=== PATIENT | male | born 1980 | race Caucasian/White ===

== ENCOUNTER 2023-07-29 07:26 | Outpatient (OUT) | payer OTHER, SELFPAY ==
[2023-07-29 07:47] LABS: Basophils Percent Auto 0.7 % (0.2-2.0); Eosinophils Absolute Auto 0.1 10^3/uL (0.0-0.7); Eosinophils Percent Auto 2.6 % (0.9-7.0); Hematocrit 43.4 % (42.0-54.0); Hemoglobin 14.1 g/dL (14.0-18.0); Immature Granulocytes Abs Auto 0.01 10^3/uL (0.00-0.03); Immature Granulocytes Pct Auto 0.2 % (0.0-0.5); Lymphocytes Absolute Auto 1.6 10^3/uL (1.2-3.8); Lymphocytes Percent Auto 34.4 % (20.5-60.0); Mean Corpuscular HGB Conc 32.5 g/dL (29.9-35.2); Mean Corpuscular Hemoglobin 27.2 pg (25.9-34.0); Mean Corpuscular Volume 83.8 fL (80.0-94.0); Mean Platelet Volume 8.8 fL (9.5-13.5); Monocytes Absolute Auto 0.5 10^3/uL (0.3-0.8); Neutrophils Absolute Auto 2.4 10^3/uL (1.4-6.5); Neutrophils Percent Auto 52.1 % (43.0-75.0); Platelet Count 251 10^3/uL (150-450); Red Blood Count 5.18 10^6/uL (4.70-6.10); Red Cell Distribution Width 13.1 % (11.0-15.0); White Blood Count 4.6 10^3/uL (4.0-11.0)
[2023-07-29 09:52] LABS: Alanine Aminotransferase 58 U/L (16-63); Albumin Globulin Ratio 1.3; Alkaline Phosphatase 76 U/L (46-116); Anion Gap 13.6; Aspartate Amino Transferase 32 U/L (15-37); Bilirubin Total 0.5 mg/dL (0.2-1.0); Calcium 9.2 mg/dL (8.5-10.1); Carbon Dioxide 27.9 mmol/L (21.0-32.0); Chloride 103 mmol/L (98-107); Chol HDL Ratio 4.7; Cholesterol 235 mg/dL (<=200); Estimated GFR (African America >60 (>=60); Estimated GFR (Non-African Ame >60 (>=60); Globulin 3.2 g/dL; Glucose 101 mg/dL (74-106); HDL Cholesterol 50 mg/dL (40-60); Potassium 4.5 mmol/L (3.5-5.1); Sodium 140 mmol/L (136-145); Total Protein 7.2 g/dL (6.4-8.2); Triglycerides 197 mg/dL (<=150); VLDL CHOLESTEROL 39.4 mg/dL
[2023-07-31 10:09] LABS: QuantiFERON-TB Gold Plus Negative (Negative)
== END 2023-07-29 07:27 | disposition home or self-care (01) ==
LOC: LAB 07:29
PROVIDERS: PCP Family Medicine; Visit Provider Nurse Practitioner
DX: L40.0 Psoriasis vulgaris (principal); L40.59 Other psoriatic arthropathy; Z79.899 Other long term (current) drug therapy
CPT/HCPCS: 36415; 80053; 80061; 85025; 86480

== ENCOUNTER 2024-08-10 08:23 | Outpatient (OUT) | payer OTHER, SELFPAY ==
[2024-08-10 08:40] LABS: Basophils Percent Auto 0.5 % (0.2-2.0); Eosinophils Absolute Auto 0.1 10^3/uL (0.0-0.7); Eosinophils Percent Auto 2.6 % (0.9-7.0); Hematocrit 40.3 % (42.0-54.0); Hemoglobin 13.7 g/dL (14.0-18.0); Immature Granulocytes Abs Auto 0.01 10^3/uL (0.00-0.03); Immature Granulocytes Pct Auto 0.3 % (0.0-0.5); Lymphocytes Absolute Auto 1.3 10^3/uL (1.2-3.8); Lymphocytes Percent Auto 32.5 % (20.5-60.0); Mean Corpuscular Hemoglobin 28.7 pg (25.9-34.0); Mean Corpuscular Volume 84.3 fL (80.0-94.0); Mean Platelet Volume 8.7 fL (9.5-13.5); Monocytes Absolute Auto 0.4 10^3/uL (0.3-0.8); Monocytes Percent Auto 9.5 % (1.7-12.0); Neutrophils Absolute Auto 2.1 10^3/uL (1.4-6.5); Neutrophils Percent Auto 54.6 % (43.0-75.0); Platelet Count 241 10^3/uL (150-450); Red Blood Count 4.78 10^6/uL (4.70-6.10); Red Cell Distribution Width 13.5 % (11.0-15.0); White Blood Count 3.9 10^3/uL (4.0-11.0)
--- OUTSIDE RECORDS SUMMARY | 2024-08-10 08:47 | XMS_ITS | CCD ---
Author Organization [facility] Care Team Providers Care Dealership General Manager Name Role Phone JOHNC, DOCTOR Consulting Unavailable BREN, DR SHARA Gould Primary Care Unavailable MISC, DR GONZALEZ Attending Unavailable MISC, DR GONZALEZ Admitting Unavailable Michelle, HAZARDOUS MATERIALS TANKER DRIVER-C Elle A Attending Provider SHARA AMAYA Primary Care Physician MICHELLE, LOG PEELER ELLE Attending Unavailable MICHELLE, LOG PEELER ELLE Admitting Unavailable Michelle, Elle A Admitting Unavailable Michelle, Elle A Attending Unavailable Medications Current Medications Medication Drug Class(es) Dates Sig (Normalized) Sig (Original) citalopram 20 mg oral tablet (7 sources) Serotonin Reuptake Inhibitor Start: 11-21-2023 End: 07-20-2024 take 1 tablet by mouth once daily Citalopram 20 mg tablet Active 0 .ROUTE .COMPLEX 90 July 20, 2024 10:41am TAKE 1 TABLET BY MOUTH EVERY DAY Start: 08-05-2023 End: 11-21-2023 take 1 tablet by mouth once daily Citalopram 20 mg tablet Discontinued 20 MG PO Daily August 05, 2023 12:00am November 21, 2023 8:15am 1 ml guselkumab 100 mg/ml auto-injector (1 source) Interleukin-23 Antagonist Start: 07-20-2024 Guselkumab (Tremfya) 100 mg/mL auto-injector Active 100 MG SUBCUT EVERY 8 WEEKS July 20, 2024 12:00am Completed/Discontinued Medications Medication Drug Class(es) Dates Sig (Normalized) Sig (Original) fluticasone propionate 0.05 mg/actuat metered dose nasal spray (3 sources) Corticosteroid Start: 09-03-2023 End: 07-20-2024 take 1 spray(s) nasal route twice daily Fluticasone Propionate 50 mcg/actuation spray,suspension Discontinued 0 .ROUTE .COMPLEX 48 September 03, 2023 10:51am July 20, 2024 10:40am USE 1 SPRAY IN EACH NOSTRIL TWICE A DAY Start: 08-12-2023 End: 09-03-2023 take 1 spray(s) nasal route twice daily Fluticasone Propionate (Flonase Allergy Relief) 50 mcg/actuation spray,suspension Discontinued 1 SPRAY INTRANASAL Twice daily 16 August 12, 2023 12:00am September 03, 2023 10:51am administer into each nostril Problems Problem Classification Problem Date Documented Da te Episodic/Chronic Other aftercare (4 sources) Other fpc (current) drug therapy; 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] Onset: 08-07-2021 Episodic Otitis media and related conditions (3 sources) Dysfunction of eustachian tube; Translations: [Unspecified Eustachian tube disorder, left ear] 08-12-2023 Episodic Unclassified (1 source) Psoriasis vulgaris; Translations: [Psoriasis vulgaris] Onset: 05-11-2022 Results Test Name Value Interpretation Reference Range Facility Basophils Auto (Bld) [#/Vol] on 07-29-2023 Basophils (Bld) [#/Vol] 0.0 10 3/uL 0.0-0.1 [facility] Basophils/100 WBC Auto (Bld) on 07-29-2023 Basophils/100 WBC (Bld) 0.7 % 0.2-2.0 [facility] Blood Mycobacterium tubercul osis tuberculin stimulated gamma interferon detectionon 07-29-2023 M. tuberculosis tuberculin stim IFN-g Ql (Bld) Comment . [facility] Comment on above: QuantiFERON-TB Gold Plus is a qualitative indirect test forM tuberculosis infection (including disease) and isintended for use in conjunction with risk assessment,radiography, and other medical and diagnostic evaluations.The QuantiFERON-TB Gold Plus result is determined bysubtracting the Nil value from either TB antigen (Ag)value. The Mitogen tube serves as a control for the test. M. tuberculosis tuberculin stim IFN-g Ql (Bld) 0.30 [IU]/mL . [facility] M. tuberculosis tuberculin stim IFN-g Ql (Bld) 1.16 [IU]/mL . [facility] Blood mitogen stimulated siddhartha ma interferon measurement (units/volume)on 07-29-2023 Mitogen stimulated gamma interferon Qn (Bld) >10.00 [IU]/mL . [facility] Cholesterol in LDL Calc [Mas s/Vol]on 07-29-2023 Cholesterol in LDL [Mass/Vol] 146.0 mg/dL [facility] Comment on above: <100 mg/dl [id number] 0-129 mg/dl NEAR OR ABOVE [id number] mg/dl BORDERLINE [id number] mg/dl HIGH>190 mg/dl VERY HIGH Cholesterol in VLDL Calc [Ma ss/Vol]on 07-29-2023 Cholesterol in VLDL [Mass/Vol] 39.4 mg/dL [facility] Eosinophils/100 WBC Auto (Bl d)on 07-29-2023 Eosinophils/100 WBC (Bld) 2.6 % 0.9-7.0 [facility] Erythrocyte distribution wid th Auto (RBC) [Ratio]on 07-29-2023 Erythrocyte distribution width (RBC) [Ratio] 13.1 % 11.0-15.0 [facility] Estimated glomerular filtrat ion rate (GFR) non- Americanon 07-29-2023 GFR/1.73 sq M.predicted among non-blacks MDRD (S/P/Bld) [Vol rate/Area] mL/min/{1.73_m2} >=60 [facility] Globulin Calc (S) [Mass/Vol] on 07-29-2023 Globulin (S) [Mass/Vol] 3.2 g/dL [facility] Hematocrit Auto (Bld) [Volum e fraction]on 07-29-2023 Hematocrit (Bld) [Volume fraction] 43.4 % 42.0-54.0 [facility] Hemoglobin [Mass/volume] in Bloodon 07-29-2023 Hemoglobin (Bld) [Mass/Vol] 14.1 g/dL 14.0-18.0 [facility] Laboratory - Chemistry and C hemistry - challengeon 07-29-2023 Albumin [Mass/Vol] 4.0 g/dL 3.4-5.0 [facility] ALP [Catalytic activity/Vol] 76 U/L 46-116 [facility] ALT [Catalytic activity/Vol] 58 U/L 16-63 [facility] AST [Catalytic activity/Vol] 32 U/L 15-37 [facility] Bilirubin [Mass/Vol] 0.5 mg/dL 0.2-1.0 [facility] Calcium [Mass/Vol] 9.2 mg/dL 8.5-10.1 [facility] Chloride [Moles/Vol] 103 mmol/L 98-107 [facility] Cholesterol [Mass/Vol] 235 mg/dL <=200 [facility] Cholesterol in HDL [Mass/Vol] 50 mg/dL 40-60 [facility] Comment on above: > or =60 mg/dl - LOW CARDIOVASCULAR RISK<40 mg/dl - HIGH CARDIOVASCULAR RISK CO2 [Moles/Vol] 27.9 mmol/L 21.0-32.0 [facility] Creatinine [Mass/Vol] 1.05 mg/dL 0.70-1.30 [facility] GFR/1.73 sq M.predicted MDRD (S/P/Bld) [Vol rate/Area] mL/min/{1.73_m2} >=60 [facility] Glucose [Mass/Vol] 101 mg/dL 74-106 [facility] Potassium [Moles/Vol] 4.5 mmol/L 3.5-5.1 [facility] Protein [Mass/Vol] 7.2 g/dL 6.4-8.2 [facility] Sodium [Moles/Vol] 140 mmol/L 136-145 [facility] Triglyceride [Mass/Vol] 197 mg/dL <=150 [facility] Urea nitrogen [Mass/Vol] 21.0 mg/dL 7.0-18.0 [facility] Urea nitrogen/Creatinine [Mass ratio] 20.0 mg/mg [facility] Laboratory - Hematology and Cell countson 07-29-2023 Immature granulocytes/100 WBC (Bld) 0.2 % 0.0-0.5 [facility] Leukocytes [#/volume] correc nae for nucleated erythrocytes in Blood by Automated counon 07-29-2023 WBC corrected for nucl RBC Auto (Bld) [#/Vol] 4.6 10 3/uL 4.0-11.0 [facility] Lymphocytes Auto (Bld) [#/Vo l]on 07-29-2023 Lymphocytes (Bld) [#/Vol] 1.6 10 3/uL 1.2-3.8 [facility] Lymphocytes/100 WBC Auto (Bl d)on 07-29-2023 Lymphocytes/100 WBC (Bld) 34.4 % 20.5-60.0 [facility] MCH Auto (RBC) [Entitic mass ]on 07-29-2023 MCH (RBC) [Entitic mass] 27.2 pg 25.9-34.0 [facility] MCHC Auto (RBC) [Mass/Vol]on 07-29-2023 MCHC (RBC) [Mass/Vol] 32.5 g/dL 29.9-35.2 [facility] MCV Auto (RBC) [Entitic vol] on 07-29-2023 MCV (RBC) [Entitic vol] 83.8 fL 80.0-94.0 [facility] Monocytes Auto (Bld) [#/Vol] on 07-29-2023 Monocytes (Bld) [#/Vol] 0.5 10 3/uL 0.3-0.8 [facility] Monocytes/100 WBC Auto (Bld) on 07-29-2023 Monocytes/100 WBC (Bld) 10.0 % 1.7-12.0 [facility] Mycobacterium tuberculosis s timulated gamma interferon [Interpretation] in Blood Qualon 07-29-2023 M. tuberculosis stim IFN-g Ql (Bld) [Interp] Negative Negative [facility] Comment on above: No response to M tub erculosis antigens detected.Infection with M tuberculosis is unlikely, but high riskindividuals should be considered for additional testing(ATS/IDSA/CDC Clinical Practice Guidelines, 2017). Thereference range is an Antigen minus Nil result of <0.35IU/mL.Chemiluminescence immunoassay methodologyPerformed at: [id number] [id number] Director: Andrey Lee PhD, Phone: [phone] Neutrophils Auto (Bld) [#/Vo l]on 07-29-2023 Neutrophils (Bld) [#/Vol] 2.4 10 3/uL 1.4-6.5 [facility] Neutrophils/100 WBC Auto (Bl d)on 07-29-2023 Neutrophils/100 WBC (Bld) 52.1 % 43.0-75.0 [facility] No Panel Informationon 07-28 Eosinophils # (Auto) 0.1 10 3/uL 0.0-0.7 [facility] Immature Granulocyte # (Auto) 0.01 10 3/uL 0.00-0.03 [facility] TB Test (QFT) Incubation See comment . [facility] Comment on above: Incubation performed . Reference Range: . Platelet mean volume Auto (B ld) [Entitic vol]on 07-29-2023 Platelet mean volume (Bld) [Entitic vol] 8.8 fL 9.5-13.5 [facility] Platelets Auto (Bld) [#/Vol] on 07-29-2023 Platelets (Bld) [#/Vol] 251 10 3/uL 150-450 [facility] RBC Auto (Bld) [#/Vol]on RBC (Bld) [#/Vol] 5.18 10 6/uL 4.70-6.10 [facility] Serum or plasma albumin/glob ulin mass ratioon 07-29-2023 Albumin/Globulin [Mass ratio] 1.3 {ratio} [facility] Serum or plasma anion gap de terminationon 07-29-2023 Anion gap [Moles/Vol] 13.6 mmol/L [facility] Serum or plasma total choles terol/high density lipoprotein (HDL) cholesterol mass rekha 07-29-2023 Cholesterol.total/Ch olesterol in HDL [Mass ratio] 4.7 {ratio} [facility] Comment on above: 3.3 - 4.4 LOW RISK4. 4 - 7.1 AVERAGE RISK7.1 - 11.0 MODERATE RISK>11.0 HIGH RISK Whole blood measurement of M ycobacterium tuberculosis stimulated gamma interferon relon 07-29-2023 M. tuberculosis stim IFN-g by CD4+ CD8+ T-cells corrected for background Qn (Bld) 0.26 [IU]/mL . [facility] Quantiferon-TB Plus (Client Incubated)on 05-16-2022 Gamma interferon background IA Qn (Bld) 0.03 International_Unit/mL Invalid Interpretation Code [facility] Comment on above: Performed By: #### 1 [id number], [id number] #### [facility] [address] [place] [address] M. tuberculosis stim IFN-g by CD4+ CD8+ T-cells Qn (Bld) 0.03 International_Unit/mL Invalid Interpretation Code [facility] Comment on above: Performed By: #### 1 [id number], [id number], [id number], [id number] #### [facility] [address] [place] [address] M. tuberculosis stim IFN-g by CD4+ T-cells Qn (Bld) 0.02 International_Unit/mL Invalid Interpretation Code [facility] Comment on above: Performed By: #### 1 [id number], [id number] [id number], [id number], [id number], [id number] #### [facility] [address] [place] [address] M. tuberculosis stim IFN-g Ql (Bld) [Interp] Negative Invalid Interpretation Code Negative [facility] Comment on above: Result Comment: No r esponse to M tuberculosis antigens detected. Infection with M tuberculosis is unlikely, but high risk individuals should be considered for additional testing (ATS/IDSA/CDC Clinical Practice Guidelines, 2017). The reference range is an Antigen minus Nil result of <0.35 IU/mL. The specimen received for QuantiFERON testing was incubated by the ordering institution. Specific procedures outlined in our Directory of Services and in the package insert for the QuantiFERON Gold (In Tube) test must be followed to enable for proper stimulation of cells for the production of interferon gamma. Chemiluminescence immunoassay methodology Performed at: [facility] [address] [place] [id number] PhD Rosa Balderas Performed By: #### 1 [id number], [id number], [id number], [id number], [id number] #### [facility] [address] [place] [address] Mitogen stimulated gamma interferon Qn (Bld) >10.00 Invalid Interpretation Code [facility] Comment on above: Performed By: #### 1 [id number], [id number], [id number], [id number], [id number] #### [facility] [address] [place] [address] Service comment (Unsp spec) [Interp] Comment Invalid Interpretation Code [facility] Comment on above: Result Comment: Daniel tiFERON-TB Gold Plus is a qualitative indirect test for M tuberculosis infection (including disease) and is intended for use in conjunction with risk assessment, radiography, and other medical and diagnostic evaluations. The QuantiFERON-TB Gold Plus result is determined by subtracting the Nil value from either TB antigen (Ag) value. The Mitogen tube serves as a control for the test. Performed By: #### 1 [id number], [id number], [id number], [id number], [id number], [id number] #### [facility] [address] [place] [address] Coding Summary.on 05-15-2022 Coding Summary. CD:[id number] Gh0 bWw+PGhlYWQ+TP7RMCOxY98 koUTcdC1RS6rXXW5QZSHCDF KGYU1ZZW0hyKM1YPqiR4Vpj iAv VhzetFHtIS86CTg8FQY9sYu rTPqgsJ1smBVtO0s7TjBhAF 55lV81WNvyBEBiRaM0HgWuj jsgbWFy B3ioJwFoiNExPvc+PHRhYmx lIHdpZHRoPScxMDAlJyBzdH sjBZ8cYb0sJXLkIEGsxHffq HNlOiBj z3fwBHTjAXblPI3fgExwF3Y svYP7AHKxb2f0Bz85lBB+PH EhBHF3aYgxOIywk259NnRxp 2elMHV4 nPOxTLdiCEV0W92kg1D9PGI oVSEuFQT5dNS6aI1teUtgnn ipH6WrpYWpWmB5YRM4qYNvr R9inTaw qxeaoH7bQiy+U66OEE0OOFP BUC1RLge7R7QoJhzvbHV+PC 86QJVcCJ60uDHbwDMdy8hui Uw0OcAr ZMQzVDP8tAvaFRzek4FwMPQ sZ86arXHst1E8DCSitIlrlM EnTsFibRA6oP9rQRvksyszi 2hvdzsn Xbhnx1lklm51kA70W25fUZz fPBAgZQG4PIAnXZGtxZfoib 8ckN0sQy3+YCvxf4jpd1sgr Zb4VrZs NPCjbrJrqGwcESX2p5OdQl5 7C5GhxYmsx4NvWzz6rv27pU Lyl2X8sXQ6RMgtEADwdA5lW WxlZnQ6 HSSkIoDpdN85iDUrWOmzZr9 kzMxxgLtlCD1rANZjxgneWV QegP9yYXSlrWJluFioOP6vN TBpbjtm v051OgUiFXI4GHUgtCLcS3G suO4tEvCmXKEhCYRsV1TiaT CqDJgvM064CRyeZhK9HPFyw rAcN1Su HSKgkOpbWwP2o5C1Cu1Sr3U jsslwRNZ8BXxbTIUsFyEcXk BnZlK6O5YuSev1LADbiSycA G7mB1Ax FLZhbaamyssmjSR4EHEwXOW chW94fQBwJUqzDx0hg5A2z3 49HKWlLVTwkI98Zj8gzDayD TBwdCBU eH1kbvtoj1otfkkkVaEfQVB fMEn9FPo1SWGrkHloFvCmFV W6WbS4NTZ6bREkiQ7ycMauo qquaA6a Oyc+O66cgZ8fQCM4QUZ1hvl uKIWghkGvRJ64WF78D7HoTd wvdGFibGU+PGRpdiBzdHlsZ I9gViVv r9qvt7PdTZaiL8UzZJHrCQj aZrm0XNYeIQZ5aQI8pI0sGG TsHHhti0Q7yGN4G9LtmsKdp v3ns6pa KWLpUHzrK01geZGzv4X6INM krQJ3QYZqiZwgSbEvsZ18Qc c+GZCvhOzzu0EtCtsex5dii 0djoKr9 KjDpJOJqblCwnRvlGJS9p7F zSp38U13xDEjiWBQxMHYnRM LwUQBvzTjmzh0bqD3aSx6+P GNvbCB3 yDA7wC4uSPTzKbC8ZXqxI44 3KiLrfMBgSqsge7krz5igaY d0MqReMOQqtzUrgVlcEPG8o 3HaRt87 R00gPOwwTXKlAJEpEUHmIZL mzFltkq8lqS6tBf3+PC9jb2 bndm00fH35dML+IVYdDPX9t WxlPSdw WRFwkK7qZYzbJoV1RKTdEjS pkA34mVXpWHzxHd3qbJlsuN dkVM2fELCuqsado700DgXva 2xkIDEw vVXlPDykAOW1T40ml0U6XRC bVXPjKPX0nJK8tD5wmQruyd ogbGVmdDsgdmVydGljYWwtY WizM876 IHRvcDsnPlBhdGllbnQgTmF dIXm0L9WiDhc1ZTNujLvsBB 2hnJJuYIdjCs8jlXzljCdqD F8fQBLs lyhmj808RmOrp2pxFNNjtHS dRYhaPGV7D57no4Z0LNOuRO NsCLJ5nPG3dX1frNddxudhx GVmdDsg orLdgSebLHfwHTquL613HKP fqMdfMoVrfmRnUCXjlYD8VA 81TS12bXXho3B9tAT0L3XgH GRpbmct slsetLP2HKRiZSPzvW38Qt2 jrZveRq8lMPFrIDJ0GBXptG ZxN4NicW2tKnHdLFJzNCZeI 3RleHQt NUitP199PHudTbH5KJKkhwK bR0IlCQXgbFquQaB1j2Z9Yl 3RR1J6XF30PM72ySTln5H3u JO1L1By EWImddherpxcqSX3LTCcSZE gsJ56Ye8dnUamIj7wRUQpRU N8RFBwjJFwK9CnzH9hQvCmD DAwMDAw N8HvfABvLPohX189CEfuKdI 5TZDaguLeF9VwFGSdyEixLj C8r2A7Rm4VSId6SC03CD54h HFmr8O6 wNZ4U4XuCYQgwcphqwatjNH 1GVWpLCLxlP03Lr6hyJqdLv 5bTGIjEPL5PYUciJJuU0Ovs W9gOmPt BYDdNTFsY7XisIZrTJnfT94 0XLwpDmJ1FAAfzrUvA2SfTI YyxXpmIkV0c9Z6Ob8FLALmT M65EHL7 eWO4DO40JT32S8AtGefygKV ibGU+PHRhYmxlIHdpZHRoPS clYTHwQtOccMxcAX1mAc1yB GVyLWNv fMujpKEgRvMpl7mzVYNlWEx sVP6jzCjiT4ArlNT0LMKvv9 k4Ii64P46sM5NumQT+PGNvb CG0tGX6 xG3pSeIqAhM2MTtbJ343NhL auOTiWzdui5xmq6lquOr8Eh C6NMUrcoRkoFywUBY7b0PfK a25N90y IHdpZHRoPSIxNSUiIHZhbGl cdh7ktZ5rKp3+TUUwjWX5xT P5eJ0pSwWbWlT1VVfxO085Y nRvcCIv Saoaa6pjh3fcxGv3SlPiVSH bumOgiXbaNDQ1o9OlVg20W7 KejZovw3VkNrs6wc92dBIbf 6I2dHW9 K2DcDEJwjcnmsTNsaWauLA7 yMMCaordzZDPdyG6hICSqE2 x4MhXeFtI7HKjiW5VixtI2S DEwcHQg WXjaOOJ3F54sc2E2GURrCXP oMPU7pKV0oC4jiXsntdlzuW VmdDsgdmVydGljYWwtYWxpZ 246IHRv jUweHJTzhP7lEIBwlBKivXn pDM1kBTWqulsrVuDGITHAEB GHVMXQCXNBTIl6D6ZwWyi2B CBzdHls TC9yuDCoSVvvVm2ldCpmtOo nZC2jFAKagyblZYUapR5jWD SkpZNxaKuoNX0nRGLrafreb 250OiAx RBC8SVUfeRJoW1JmjF2aAdK pXKXoJQCvZ9LjsOQyOSwrM9 54KSscNsV5DYHputTlY6MrS WFsaWdu ThP5w0V4Vc8oHD9yCV7lEHf 7NE37HP28uNIxl1D0bVG3F6 SuHQNmewecepjilCL9ADGuK DUwaW47 bTUqZAmeTk7nq7K0m731XEK cFJKemL27Qc0odRylOPTirX ILnX8hbbcep9kphvktCxAyG DAwMDt0 GYz7VWZtgEraFcJhFBW6RqC 0YTY6zBCaxZ1isTdhcogscZ 9wOyc+DMZrDKOajvR5N7YpC oe5TBYt bThuTD0qkODxJVwhWc1okXt lqGgwPX1sSFJdoirjKPEspA 2kWKKzkLWjkYxtIW4hSEFms pliu116 KmBtMTW0ANAkrQYiG6OvgU6 uTsKmCRKpHNRbE7IuuHXcWF zzY987OPzxLiA1OVKijuSzM 2FsLWFs fIamPwG3u7S0Gv1GMEudJT0 5KW15dDCfe6F3hQZ3Z1DfTP GxsuzdfmqiaVC5KLEkEETjs F90yOIh AKdtWg4bw2H5m806LLHkGDY fnY88Oy2qpIdcIDLymOAZbU 2rhqhun4ohtphrLhQeWLUdW Zd0DPi4 XJCtgYzrQoGsVQD3FgA9TDD 4oPTovN3qjIihhkrdpY2gTj c+X5M8sIM6vFTujGtzxCB+P S00wl42 H0YcWapdKyv3DHOxOBD3qKU 4fG1iEHYsEAkeu3Q5gPB4J2 XkwyNvug9ly2ytGLEfZOroW 29sbGFw u8X2NGLufWV2ACWopYizLmY udR13Idg+WQDaeBpdk8GvTk fiz0rsd0ooeYq3PxBgAGXbd mFsaWdu XKS8p8JyJe37B02cEHtbSRT vNKSbCFIuHXDexGkyvd3iqK 9wIi8+TEJwyRK0wDK5fH9jO jAlIiB2 KOvxW257DyOdxXIyQqwoe6t hm5dwyAc9OfEwGXMatjEbkU tcYFT7n8WxNb56V4LmpBqrh 7RcYat7 et03cWQem7I1wGW5L0VrWHL hilmdvZWhoXfoET8mGNSgea wcKUVusE6qWMLeA1b2AdWaV zP4UGxt X3LxabY9BOKfgUPuSIQbeVY ZiK1arpmnr4sxlmhdXcFeCL KpUUl1LNe7PHBzuEbcYcViV SW3UqU1 REM0rZWgtZ2erJilxnztbD5 wOyc+HZi2p5kaoIUxPJ1dcN P8NO67KU69mITue7M9xJV7K 3BhZGRp qxuryffehBK5PSRaDGXuhJ1 1Tg8bvHdqCq7hKWDeMQX5QA MwkBBhF3QmfF8vEiPjGQLyR VIyA8Dz uTZyEXbyQ078HXaeWpT9YYJ rjwPxR5WhPKIowYkjGoM0h6 F8Rq9UJM50RR57QG90jFUgs 0I8dGY5 Y2QhHQLfvtalptqqsDW5YBL yUOCaeB51Qv1acPiwHf0aDE ZgKYA5NIZbdEBcK1HjwK8hS iAjMDAw GYFwN6DxxGIxFHbeK476XAa vVlH3TGAxwvEvR2AyBARgpE twRwF8n9H4Em3POk20GK68E H67nGCs a2D1tMG8E1SvAYLndnhycpg ziQC8NBRpLBZqxA18Su6jwR pnNk5tMQQeVNO4JZBpiMClN 8EgyQ6t TpZpXKMnBZLuR5JslBVrFOq yM284HGhgXaA6DNKbtnMvW1 ZnRLDaeUlvLmX9a6Y2Uv8PV Xllcjo8 T3LcAxxquDT+ZY53IZQaZB7 2vTTxdGEvb3lrhRt2OqWmXD IpKCL2eBrgZBfry3FxJBTiI 29sbGFw c2U6 (more content not included)... Normal [facility] Auto Diffon 05-14-2022 Basophils/100 WBC (Bld) 0.5 % Normal 0.0-2.0 [facility] Comment on above: Order Comment: Order Added by Discern Expert. Performed By: #### 1 [id number] [id number], 9292405, 9900436, [id number] #### [facility] [address] [place] [address] Basophils/Leukocytes Auto (Bld) [Pure # fraction] 0.0 E9/L Normal 0.0-0.2 [facility] Comment on above: Order Comment: Order Added by Discern Expert. Performed By: #### 1 [id number], [id number], [id number], [id number], 3431614, [id number] #### [facility] [address] [place] [address] Eosinophils/100 WBC (Bld) 1.9 % Normal 0.0-8.0 [facility] Comment on above: Order Comment: Order Added by Discern Expert. Performed By: #### 1 [id number], [id number], [id number], 9837534, [id number], [id number] #### [facility] [address] [place] [address] Eosinophils/Leukocyt es Auto (Bld) [Pure # fraction] 0.1 E9/L Normal 0.0-0.5 [facility] Comment on above: Order Comment: Order Added by Meg Expert. Performed By: #### 1 [id number], [id number], [id number], 9370240, 3287867, [id number] #### [facility] [address] [place] [address] Lymphocytes/100 WBC (Bld) 33.4 % Normal 14.0-50.0 [facility] Comment on above: Order Comment: Order Added by Meg Expert. Performed By: #### 1 [id number], [id number], [id number], 6656868, 7651738, [id number] #### [facility] [address] [place] [address] Lymphocytes/Leukocyt es Auto (Bld) [Pure # fraction] 1.7 E9/L Normal 1.0-4.0 [facility] Comment on above: Order Comment: Order Added by Meg Expert. Performed By: #### 1 [id number], [id number], 3958382, 5953621, 9970210, 9985705 #### [facility] [address] [place] [address] 29545 Monocytes/100 WBC (Bld) 9.1 % Normal 4.0-14.0 [facility] Comment on above: Order Comment: Order Added by Discern Expert. Performed By: #### 1 [id number], [id number], 4660548, 4676666, 8605979, 6400812 #### [facility] [address] [place] [address] 35505 Monocytes/Leukocytes Auto (Bld) [Pure # fraction] 0.5 E9/L Normal 0.2-1.0 [facility] Comment on above: Order Comment: Order Added by Discern Expert. Performed By: #### 1 [id number], [id number], 2631660, 3972482, 6500462, 3555863 #### [facility] [address] [place] [address] Neutrophils/100 WBC (Bld) 55.1 % Normal 36.0-75.0 [facility] Comment on above: Order Comment: Order Added by Discern Expert. Performed By: #### 1 [id number], [id number], 7399334, 8254040, 3215266, [id number] #### [facility] [address] [place] [address]759 Neutrophils/Leukocyt es Auto (Bld) [Pure # fraction] 2.8 E9/L Normal 2.0-7.5 [facility] Comment on above: Order Comment: Order Added by Discern Expert. Performed By: #### 1 [id number], [id number], 2289661, 4840051, 4528331, 1023595 #### [facility] [address] [place] [address] 53493 CBC w/ Auto Diffon 3 Erythrocyte distribution width (RBC) [Ratio] 14.5 % High 10.9-14.2 [facility] Comment on above: Performed By: #### 1 [id number], [id number], 9438854, 7378572, 0858134, 8368375 #### [facility] [address] [place] [address] Hematocrit (Bld) [Volume fraction] 42.4 % Normal 37.7-49.0 [facility] Comment on above: Performed By: #### 1 [id number], [id number], 6091036, 1754697, 7193519, 5272695 #### [facility] [address] [place] [address] Hemoglobin (Bld) [Mass/Vol] 14.3 g/dL Normal 13.5-17.5 [facility] Comment on above: Performed By: #### 1 [id number], [id number], 9933492, 2899427, 3470346, 5234205 #### [facility] [address] [place] [address] 47319 MCH (RBC) [Entitic mass] 27.7 pg Normal 27.0-34.0 [facility] Comment on above: Performed By: #### 1 [id number], [id number], 7464264, 5426104, 4296639, 6823018 #### [facility] [address] [place] [address] 42008 MCHC (RBC) [Mass/Vol] 33.7 g/dL Normal 31.4-36.0 [facility] Comment on above: Performed By: #### 1 [id number], [id number], 2637349, 0243095, 0266754, 1858285 #### [facility] [address] [place] [address] 73214 MCV (RBC) [Entitic vol] 82.2 fL Normal 80.0-100.0 [facility] Comment on above: Performed By: #### 1 [id number], [id number], 9548156, 9404606, 7426067, 8321070 #### [facility] [address] [place] [address] 82709 Platelet mean volume (Bld) [Entitic vol] 7.0 fL Normal 6.4-10.8 [facility] Comment on above: Performed By: #### 1 [id number], [id number], 3403858, 1571846, 8842221, 7059686 #### [facility] [address] [place] [address] 36048 Platelets (Bld) [#/Vol] 274.0 E9/L Normal 150.0-500.0 [facility] Comment on above: Performed By: #### 1 [id number], [id number], 7927511, 0493567, 0853953, 9244631 #### [facility] [address] [place] [address] RBC (Bld) [#/Vol] 5.2 E12/L Normal 4.3-5.9 [facility] Comment on above: Performed By: #### 1 [id number], [id number], 2361116, 6961636, 2906683, 1334884 #### [facility] [address] [place] [address] WBC corrected for nucl RBC Auto (Bld) [#/Vol] 5.0 E9/L Normal 4.0-11.0 [facility] Comment on above: Performed By: #### 1 [id number], [id number], 0794929, 4647390, 7999723, 4035548 #### [facility] [address] [place] [address] CHEMISTRYOrdered By: Shameka Patiño on 05-14-2022 Albumin [Mass/Vol] 4.5 g/dL Normal 3.3 - 5.0 gm/dL [facility] Albumin/Globulin [Mass ratio] 1.7 {ratio} Normal 1.1 - 2.2 [facility] ALP [Catalytic activity/Vol] 59 [iU]/d Normal 21 - 98 Int._Unit/L [facility] ALT No additional P-5'-P [Catalytic activity/Vol] 45 [iU]/d Normal 6 - 46 Int._Unit/L [facility] Anion gap [Moles/Vol] 12 mmol/L Normal 6 - 16 mEq/L [facility] AST [Catalytic activity/Vol] 30 [iU]/d Normal 5 - 43 Int._Unit/L [facility] Bilirubin [Mass/Vol] 0.6 mg/dL Normal 0.0 - 1 .1 mg/dL [facility] Calcium [Mass/Vol] 8.9 mg/dL Normal 8.9 - 11. 1 mg/dL [facility] Chloride [Moles/Vol] 104 mmol/L Normal 101 - 1 11 mmol/L [facility] Cholesterol [Mass/Vol] 209 mg/dL High 120 - 200 mg/dL [facility] Cholesterol in HDL [Mass/Vol] 49 mg/dL Invalid Interpretation Code [facility] Cholesterol in LDL [Mass/Vol] 136 mg/dL High <=129mg/dL [facility] Cholesterol in VLDL [Mass/Vol] 28 mg/dL Normal 7 - 40 mg/dL [facility] CO2 [Moles/Vol] 25 mmol/L Normal 21 - 31 mmol/L [facility] Creatinine [Mass/Vol] 1.0 mg/dL Normal 0.5 - 1.3 mg/dL [facility] Globulin (S) [Mass/Vol] 2.6 g/dL Normal 1.4 - 4.0 gm/dL [facility] Glucose [Mass/Vol] 103 mg/dL Normal 55 - 199 mg/dL [facility] Potassium [Moles/Vol] 4.4 mmol/L Normal 3.5 - 5.3 mmol/L [facility] Protein [Mass/Vol] 7.1 g/dL Normal 6.0 - 7.8 gm/dL [facility] Sodium [Moles/Vol] 137 mmol/L Normal 135 - 145 mmol/L [facility] Triglyceride [Mass/Vol] 139 mg/dL Normal <=149mg/dL [facility] Urea nitrogen [Mass/Vol] 19 mg/dL Normal 5 - 21 mg/dL [facility] Urea nitrogen/Creatinine [Mass ratio] 19 mg/mg Normal 10 - 20 [facility] CHEMISTRYOrdered By: SYSTEM SYSTEM on 05-14-2022 GFR/1.73 sq M.predicted among blacks MDRD (S/P/Bld) [Vol rate/Area] mL/min/1.73 m2 Normal >=59mL/min/1 .73 m2 [facility] Chem S GFR/1.73 sq M.predicted among non-blacks MDRD (S/P/Bld) [Vol rate/Area] mL/min/1.73 m2 Normal >=59mL/min/1 .73 m2 [facility] Chem S CMPon 05-14-2022 Creatinine [Mass/Vol] 1.0 mg/dL Normal 0.5-1.3 [facility] Comment on above: Performed By: #### 1 [id number], [id number], 1801787, 0321173, 8107199, 5414271 #### [facility] [address] [place] [address] Urea nitrogen/Creatinine [Mass ratio] 19 No Units Normal 10-20 [facility] Comment on above: Performed By: #### 1 [id number], [id number], 4007908, 2902722, 5887349, 5726758 #### [facility] [address] [place] [address] Albumin [Mass/Vol] 4.5 g/dL Normal 3.3-5.0 [facility] Comment on above: Performed By: #### 1 [id number], [id number], 6414570, 4277567, 4273568, 6320945 #### [facility] [address] [place] [address] Albumin/Globulin (S) [Mass conc ratio] 1.7 Normal 1.1-2.2 [facility] Comment on above: Performed By: #### 1 [id number], [id number], 9417888, 0539522, 2154069, 2219873 #### [facility] [address] [place] [address] ALP [Catalytic activity/Vol] 59 Int._Unit/L Normal 21-98 [facility] Comment on above: Performed By: #### 1 [id number], [id number], 6057266, 1823576, 8394660, 5942890 #### [facility] [address] [place] [address] ALT No additional P-5'-P [Catalytic activity/Vol] 45 Int._Unit/L Normal 6-46 [facility] Comment on above: Performed By: #### 1 5696218, [id number], 8035308, 6933827, 1784597, 7169022 #### [facility] [address] [place] [address] Anion gap [Moles/Vol] 12 mmol/L Normal 6-16 [facility] Comment on above: Performed By: #### 1 [id number], [id number], 9357694, 8435613, 7987671, 7604402 #### [facility] [address] [place] [address] AST [Catalytic activity/Vol] 30 Int._Unit/L Normal 5-43 [facility] Comment on above: Performed By: #### 1 6389845, [id number], 4596975, 0252043, 8583916, 6029012 #### [facility] [address] [place] [address] Bilirubin [Mass/Vol] 0.6 mg/dL Normal 0.0-1.1 [facility] Comment on above: Performed By: #### 1 1260119, [id number], 3259049, 4416235, 4510930, 8119375 #### [facility] [address] [place] [address] Calcium [Mass/Vol] 8.9 mg/dL Normal 8.9-11.1 [facility] Comment on above: Performed By: #### 1 3538310, [id number], 2602756, 8649930, 7233739, 9860636 #### [facility] [address] [place] [address] Chloride [Moles/Vol] 104 mmol/L Normal 101-111 [facility] Comment on above: Performed By: #### 1 6073960, 1441058734, 1737741, 8672891, 9691270, 6059937 #### [facility] [address] [place] [address] CO2 [Moles/Vol] 25 mmol/L Normal 21-31 [facility] Comment on above: Performed By: #### 1 5374326, 0193590675, 9427778, 0895801, 1413799, 4076901 #### [facility] [address] [place] [address] Globulin (S) [Mass/Vol] 2.6 g/dL Normal 1.4-4.0 [facility] Comment on above: Performed By: #### 1 7447242, [id number], 4628991, 8324242, 1843262, 4517706 #### [facility] [address] [place] [address] Glucose [Mass/Vol] 103 mg/dL Normal 55-199 [facility] Comment on above: Result Comment: If t his glucose result represents a fasting glucose, interpretation should refer to the following reference range: 55-99 mg/dL Performed By: #### 1 7388939, 1526048103, 8098589, 6853976, 5816671, 0122677 #### [facility] [address] [place] [address] Potassium [Moles/Vol] 4.4 mmol/L Normal 3.5-5.3 [facility] Comment on above: Performed By: #### 1 0666845, [id number], 3734354, 5873162, 2867489, 9427732 #### [facility] [address] [place] [address] Protein [Mass/Vol] 7.1 g/dL Normal 6.0-7.8 [facility] Comment on above: Performed By: #### 1 1638246, [id number], 3448778, 6754412, 4924552, 4863865 #### [facility] [address] [place] [address] Sodium [Moles/Vol] 137 mmol/L Normal 135-145 [facility] Comment on above: Performed By: #### 1 5536507, 8257017949, 1984916, 4272832, 2888018, 4051812 #### [facility] [address] [place] [address] Urea nitrogen [Mass/Vol] 19 mg/dL Normal 5-21 [facility] Comment on above: Performed By: #### 1 7410627, 7356969251, 9949721, 6357954, 1560856, 8244764 #### [facility] [address] [place] [address] Consent for Treatmenton 04-26 Consent for Treatment [id number]#1.00C D:127 Normal [facility] HEMATOLOGYOrdered By: SYSTEM SYSTEM on 05-14-2022 Basophils/100 WBC (Bld) 0.5 % Normal 0.0 - 2.0 % [facility] Basophils/Leukocytes Auto (Bld) [Pure # fraction] 0.0 E9/L Normal 0.0 - 0.2 E9/L [facility] Eosinophils/100 WBC (Bld) 1.9 % Normal 0.0 - 8.0 % [facility] Eosinophils/Leukocyt es Auto (Bld) [Pure # fraction] 0.1 E9/L Normal 0.0 - 0.5 E9/L [facility] Lymphocytes/100 WBC (Bld) 33.4 % Normal 14.0 - 50.0 % [facility] Lymphocytes/Leukocyt es Auto (Bld) [Pure # fraction] 1.7 E9/L Normal 1.0 - 4.0 E9/L [facility] Monocytes/100 WBC (Bld) 9.1 % Normal 4.0 - 14.0 % [facility] Monocytes/Leukocytes Auto (Bld) [Pure # fraction] 0.5 E9/L Normal 0.2 - 1.0 E9/L [facility] Neutrophils/100 WBC (Bld) 55.1 % Normal 36.0 - 75.0 % [facility] Neutrophils/Leukocyt es Auto (Bld) [Pure # fraction] 2.8 E9/L Normal 2.0 - 7.5 E9/L [facility] HEMATOLOGYOrdered By: Anneliese Marino on 05-14-2022 Erythrocyte distribution width (RBC) [Ratio] 14.5 % High 10.9 - 14.2 % [facility] Hematocrit (Bld) [Volume fraction] 42.4 % Normal 37.7 - 49.0 % [facility] Hemoglobin (Bld) [Mass/Vol] 14.3 g/dL Normal 13.5 - 17.5 gm/dL [facility] MCH (RBC) [Entitic mass] 27.7 pg Normal 27.0 - 34.0 pg [facility] MCHC (RBC) [Mass/Vol] 33.7 g/dL Normal 31.4 - 36.0 gm/dL [facility] HemeAutoSS MCV (RBC) [Entitic vol] 82.2 fL Normal 80.0 - 100.0 fL [facility] Platelet mean volume (Bld) [Entitic vol] 7.0 fL Normal 6.4 - 10.8 fL [facility]eAutoSS Platelets (Bld) [#/Vol] 274.0 E9/L Normal 150.0 - 500.0 E9/L [facility] RBC (Bld) [#/Vol] 5.2 E12/L Normal 4.3 - 5.9 E12/L [facility] WBC corrected for nucl RBC Auto (Bld) [#/Vol] 5.0 E9/L Normal 4.0 - 11.0 E9/L [facility] Lipid Panelon 05-14-2022 Cholesterol [Mass/Vol] 209 mg/dL High 120-200 [facility] Comment on above: Performed By: #### 1 [id number], [id number], 9502546, 7392209, 2935121, 5149434 #### [facility] [address] [place] [address] Cholesterol in HDL [Mass/Vol] 49 mg/dL Invalid Interpretation Code [facility] Comment on above: Result Comment: HDL > or equal to 60 mg/dL: Low cardiovascular risk HDL < 40 mg/dL : High cardiovascular risk Performed By: #### 1 9343358, [id number], 6125486, 2427722, 8341160, 5615370 #### [facility] [address] [place] [address] Cholesterol in LDL [Mass/Vol] 136 mg/dL High <=129 [facility] Comment on above: Performed By: #### 1 8710635, 2689350263, 5930545, 5092807, 0208455, 1372404 #### [facility] [address] [place] [address] Cholesterol in VLDL [Mass/Vol] 28 mg/dL Normal 7-40 [facility] Comment on above: Performed By: #### 1 2867813, 3910867603, 2588647, 6750254, 5681099, 9384000 #### [facility] [address] [place] [address] Triglyceride [Mass/Vol] 139 mg/dL Normal <=149 [facility] Comment on above: Performed By: #### 1 0622762, 6085702525, 5737808, 3284473, 0199183, 5336583 #### [facility] [address] [place] [address] Physician Orderon 05-14-2022 Physician Order [id number]#1.00C D:127 Normal [facility] eGFRon 05-14-2022 GFR/1.73 sq M.predicted among blacks MDRD (S/P/Bld) [Vol rate/Area] mL/min/{1.73_m2} Normal >=59 [facility] Comment on above: Order Comment: Order added by Discern Expert. Result Comment: eGFR is race adjusted. AA=. Performed By: #### 1 9117041, [id number], 0655508, 0277076, 8041059, 4971680 #### [facility] [address] [place] [address] GFR/1.73 sq M.predicted among non-blacks MDRD (S/P/Bld) [Vol rate/Area] mL/min/{1.73_m2} Normal >=59 [facility] Comment on above: Order Comment: Order added by Discern Expert. Result Comment: Informatics Educator sophia kidney disease could be indicated at eGFR's of less than 60 mL/min/1.73m2. Kidney failure is indicated at less than 15 mL/min/1.73m2. Performed By: #### 1 1558385, [id number], 1400871, 8089943, 9668277, 9560421 #### [facility] [address] [place] [address] Superficial Wound Cultureon 05-11-2022 Superficial Wound Culture ORGANISM: Staphylococcus aureus (O:STAAUR) Quantity of Growth Heavy Growth ORGANISM: Strep agalactiae - (group b) (O:STRAGA) Comments Organism Not Routinely Tested for Susceptibilities Quantity of Growth Moderate Growth Aerobic JOSE Charge (PCMIC38) -- SUSCEPTIBILITY - ORGANISM: O:STAAUR ANTIBIOTIC INTERPRETATION JOSE Azithromycin S <2 Ceftaroline S <0.5 Ciprofloxacin S <1 Clindamycin S <0.25 Daptomycin S 1 Levofloxacin S <1 Linezolid S 2 Oxacillin S <0.25 Penicillin S <0.03 Tetracycline I 8 Trimethoprim/Sulfametho xazole S <0.5 Vancomycin S 2 S = SUSCEPTIBLE I = INTERMEDIATE R = RESISTANT BLANK = DATA NOT AVAILABLE, OR DRUG NOT ADVISABLE OR TESTED R* = RESISTANCE DUE TO EXTENDED SPECTRUM BETA-LACTAMASES ESBL = EXTENDED SPECTRUM BETA-LACTAMASE TFG = THYMIDINE-DEPENDENT STRAIN NICOLA = BETA-LACTAMASE POSITIVE IB = INDUCIBLE BETA-LACTAMASE. APPEARS IN PLACE OF 'S' WITH SPECIES KNOWN TO POSSESS INDUCIBLE BETA-LACTAMASES. POTENTIALLY THEY MAY BECOME RESISTANT TO ALL B-LACTAM DRUGS. PERFORMED BY: [place] [address] PATHOLOGIST SENIOR CLINICAL DATA ANALYST MAURILIO GARVIN M.D. [facility] Comment on above: Performed By: #### C USUP #### [address] QUANTIFERON TB GOLD PLUSon 0 08-09-2021 QuantiFERON Criteria Comment Normal [facility] Comment on above: Result Comment: The QuantiFERON-TB Gold Plus result is determined by subtracting the Nil value from either TB antigen (Ag) tube. The mitogen tube serves as a control for the test. Performed By: #### Q NTTB #### [facility] [address] [place] [address] Dr. Orlando Miranda QuantiFERON Incubation Incubation performed. Normal [facility] Comment on above: Performed By: #### Q NTTB #### [facility] [address] [place] [address] Dr. Orlando Miranda QuantiFERON Mitogen Value >10.00 Normal [facility] Comment on above: Performed By: #### Q NTTB #### [facility] [address] [address] [address] Orlando Miranda QuantiFERON Nil Value 0.03 IU/mL Normal [facility] Comment on above: Performed By: #### Q NTTB #### [facility] [address] [address] [address] Orlando Miranda QuantiFERON TB1 Ag Value 0.03 IU/mL Normal [facility] Comment on above: Performed By: #### Q NTTB #### [facility] [address] [address] [address] Orlando Miranda QuantiFERON TB2 Ag Value 0.04 IU/mL Normal [facility] Comment on above: Performed By: #### Q NTTB #### [facility] [address] [address] [address] Orlando Miranda QuantiFERON-TB Gold Plus Negative Normal Negative [facility] Comment on above: Result Comment: Chem iluminescence immunoassay methodology Performed By: #### Q NTTB #### [facility] [address] [place] [address] Dr. Orlando Miranda Vital Signs Date Time Vital Sign Value Performing Clinician Lupillo darling 07-20-2024 10: Body height 175.26 cm [facility] 07-20-2024 10:040 Body mass index (BMI) [Ratio] 31.8 kg/m2 [facility] 07-20-2024 10: Body weight 97.97 kg [facility] 07-20-2024 10:040 Diastolic blood pressure 86 mm[Hg] [facility] 07-20-2024 10:040 Heart rate 66 /min [facility] 07-20-2024 10:040 Systolic blood pressure 134 mm[Hg] [facility] 08-12-2023 11:30040 Body height 175.26 cm [facility] 08-12-2023 11:300400 Body mass index (BMI) [Ratio] 31.7 kg/m2 [facility] 08-12-2023 11:30-0400 Body weight 97.52 kg [facility] 08-12-2023 11:30-0400 Diastolic blood pressure 74 mm[Hg] [facility] 08-12-2023 11:30-0400 Heart rate 58 /min [facility] 08-12-2023 11:30-0400 SaO2% (BldA) [Mass fraction] 98 % [facility] 08-12-2023 11:30-0400 Systolic blood pressure 124 mm[Hg] [facility] Encounters Encounter Date Encounter Type Care Provider Facility Start: 07-20-2024 End: 07-20-2024 ambulatory [facility] Work Phone: Start: 07-20-2024 End: 07-20-2024 [facility] encounter [facility] Work Phone: Start: 08-12-2023 End: 08-12-2023 ambulatory [facility] Work Phone: Start: 08-12-2023 End: 08-12-2023 Patient encounter procedure [facility] Work Phone: Start: 08-05-2023 Non-patient / Non-visit [facility] Work Phone: Start: 07-29-2023 Non-patient / Non-visit [facility] Work Phone: Start: 05-14-2022 End: 05-15-2022 ambulatory LOG PEELER ELLE MICHELLE Facility:[facility] Start: 05-14-2022 End: 05-14-2022 Patient encounter procedure ELLE MICHELLE [facility] Start: 05-11-2022 End: 05-11-2022 ambulatory Elle A Michelle [facility] Work Phone: Start: 05-11-2022 End: 05-11-2022 Departed [employer] Elle Michelle Work Phone: [facility] [place] Work Phone: Start: 08-07-2021 End: 08-08-[address] DOCTOR OLIVAS Facility:[facility] Plan of Treatment Date Care Activity Detail Author Start: 05-11-2022 Superficial Wound Culture Superficial Wound Culture [facility] Payers Date Payer Category Payer Self-pay 1980 Unknown [id number] 1980 Unknown [id number] 1959 Unknown [id number] Unknown [id number] [id number] Unknown MMO [id number] Social History Date Type Detail Facility Tobacco smoking stat us [facility] Unknown if ever smoked [facility] Work Phone: Start: 1980 Sex Assigned At Male F [facility] Tobacco smoking status No Smokin g Status Entered [facility] Sex Assigned At Male [facility] Start: 08-12-2023 End: 07-20-2024 Tobacco smoking status NHIS Never smoked tobacco (finding) [facility] Start: 07-20-2024 Sex Male (finding) [facility] Evaluation + Plan note 05-14-2022 Note Date & Type Note Facility 05-14-2022 Evaluation + Plan note Diagnostic Tests PendingQuantiferon-TB Plus (Client Incubated) 05/14/22 [facility] Evaluation note Note Date & Type Note Facility Evaluation note No assessment information availa ble [facility] Work Phone: Evaluation note Note Date & Type Note Facility Evaluation note Diagnosis Onset Date Dysfunction of left eustachian tube acute [facility] Work Phone: Hospital course Narrative Note Date & Type Note Facility Hospital course Narrative No data available for this section [facility] Hospital Discharge instructions Note Date & Type Note Facility Hospital Discharge instructions No data available for this section [facility] Progress note Note Date & Type Note Facility Progress note No data available for this section [facility] Summary Purpose Family History No Family History Records FoundNo Family History Records FoundNo Family History Records Found Advance Directives Advance Directive Response Recorded Date/ Time Advance Directives No April 8:15am Chief Complaint and Reason for Visit Chief Complaint Amb Documentation left ear pain Reason for Visit Dysfunction of left eustachian tube Chief Complaint Admit Date med refills July 20, 2024 10: 13am Additional Source Comments (unrecognized sect ion and content) No Status Records FoundNo Status Records FoundNo Status Records Found INFORMATION SOURCE (unrecogn ized section and content) DATE CREATED AUTHOR 08/13/2021 [facility] DATE CREATED AUTHOR AUTHOR'S ORGANIZ ATION 05/17/2022 [facility] DATE CREATED AUTHOR AUTHOR'S ORGANIZ ATION 05/23/2022 [facility] Care Teams (unrecognized sec tion and content) Team Status: Active Member Role Status Dates Shara Amaya MD Primary Care Provider Active Team Status: Inactive Member Role Status Dates Shara Amaya MD Primary Care Provide r, Attending Provider Active Start: July 20, 2024 End: July 20, 2024 Team Status: Inactive Member Role Status Dates AMBROSIO Mccarthy Attending Provider Active Team Status: Active Member Role Status Dates Shara Amaya MD Primary Care Provider Active Team Status: Active Member Role Status Dates Provider Conversion Primary Care Provider Active Start: July 29, 2023 AMBROSIO Mccarthy Attending Provider Active Sta rt: July 29, 2023 Team Status: Active Member Role Status Dates Provider Conversion Primary Care Provider Active Start: August 05, 2023 ANANDA Red Attending Provider Active Start : August 05, 2023 Team Status: Inactive Member Role Status Dates Talita Peck APRN NP-C Attending Provider Act jenaro Start: August 12, 2023 End: August 12, 2023 Shara Amaya MD Primary Care Provider Active Start: August 12, 2023 End: August 12, 2023 Team Status: Inactive Member Role Status Dates Shara Amaya MD Primary Care Provide r, Attending Provider Active Start: July 20, 2024 End: July 20, 2024 Goals (unrecognized section and content) Goals may be documented in a n alternate section No data available for this sectionGoals may be documented in an alternate sectionGoals may be documented in an alternate section FOR RECORDS PERTAINING TO PATIENTS WHO ARE OR HAVE BEEN ENROLLED IN A CHEMICAL DEPENDENCY/SUBSTANCEABUSE PROGRAM, SOME INFORMATION MAY BE OMITTED. This clinical summary was aggregated from multiple sources. Caution should be exercised in using it in the provision of clinical care. This summary normalizes information from multiple sources, and as a consequence, information in this document may materially change the coding, format and clinical context of patient data. In addition, data may be omitted in some cases. CLINICAL DECISIONS SHOULD BE BASED ON THE PRIMARY CLINICAL RECORDS. [employer] provides no warranty or guarantee of the accuracy or completeness of information in this document.
[2024-08-10 10:01] LABS: Alanine Aminotransferase 71 U/L (16-63); Albumin Globulin Ratio 1.3; Alkaline Phosphatase 72 U/L (46-116); Anion Gap 7.6; Aspartate Amino Transferase 27 U/L (15-37); BUN Creatinine Ratio 16.8; Bilirubin Total 0.3 mg/dL (0.2-1.0); Carbon Dioxide 30.8 mmol/L (21.0-32.0); Chloride 104 mmol/L (98-107); Chol HDL Ratio 3.9; Cholesterol 218 mg/dL (<=200); Estimated GFR (African America >60 (>=60 mL/min/1.73m^2); Estimated GFR (Non-African Ame >60 (>=60 mL/min/1.73m^2); Globulin 3.1 g/dL; Glucose 103 mg/dL (74-106); HDL Cholesterol 56 mg/dL (40-60); Potassium 4.4 mmol/L (3.5-5.1); Sodium 138 mmol/L (136-145); Total Protein 7.1 g/dL (6.4-8.2); Triglycerides 210 mg/dL (<=150)
[2024-08-12 04:08] LABS: QuantiFERON-TB Gold Plus Negative (Negative)
== END 2024-08-10 08:24 | disposition home or self-care (01) ==
LOC: LAB 08:25
PROVIDERS: PCP Family Medicine; Visit Provider Nurse Practitioner
DX: L40.0 Psoriasis vulgaris (principal); L40.59 Other psoriatic arthropathy; Z79.899 Other long term (current) drug therapy
CPT/HCPCS: 36415; 80053; 80061; 85025; 86480